=== PATIENT | male | born 1955 | race Caucasian/White ===

== ENCOUNTER 2017-03-18 19:52 | Observation (INO) ==
[2017-03-18] MEDS ORDERED: 0.9 % Sodium Chloride 1,000 ML IVC ONE (20:37)
[2017-03-18 20:50] LABS: Basophils % 0.5 %; Eosinophils # 0.3 K/mcL (0.0-0.6); Eosinophils % 3.7 %; Hematocrit 45.6 % (37.5-50.1); Hemoglobin 15.3 g/dL (12.9-16.9); Immature Granulocytes % 0.2 % (0-4); Lymphocytes # 2.3 K/mcL (0.6-4.6); Lymphocytes % 28.4 %; Mean Corpuscular HGB Conc 33.6 g/dL (31.6-35.5); Mean Corpuscular Hemoglobin 30.5 pg (28.0-33.3); Mean Corpuscular Volume 90.8 fL (83.0-100.0); Mean Platelet Volume 10.3 fL (9.4-12.4); Monocytes # 0.6 K/mcL (0.0-1.3); Monocytes % 7.6 %; Neutrophils # 4.8 K/mcL (1.6-8.9); Platelet Count 227 K/mcL (140-400); Red Blood Count 5.02 M/mcL (4.19-5.50); Red Cell Distribution Width 12.7 % (11.5-14.5); Segmented Neutrophils % 59.6 %
[2017-03-18 21:04] LABS: BUN/Creatinine Ratio 19 (6-26); Blood Urea Nitrogen 19 mg/dL (8-26); Calcium 9.4 mg/dL (8.6-10.8); Carbon Dioxide 24 mEq/L (19-29); Chloride 104 mEq/L (98-109); Glucose 96 mg/dL (70-99); Osmolality,Calculated 288 (280-300); Potassium 4.3 mEq/L (3.5-4.5); Sodium 138 mEq/L (136-145); eGFR For African Americans > 60 (> 60); eGFR For Non-African Americans > 60 (> 60)
[2017-03-18 21:05] LABS: Amphetamine Screen,Urine Negative ng/mL (Cutoff=1000); Barbiturate Screen,Urine Negative ng/mL (Cutoff=200); Benzodiazepines Screen,Urine Negative ng/mL (Cutoff=200); Cannabinoid Screen,Urine Negative ng/mL (Cutoff = 50); Cocaine Screen,Urine Negative ng/mL (Cutoff= 300); Opiate Screen,Urine Negative ng/mL (Cutoff=300); Phencyclidine Screen,Urine Negative ng/mL (Cutoff=25)
[2017-03-18 21:13] LABS: Bilirubin,Urine Negative (Negative); Blood,Urine Negative (Negative); Clarity,Urine Clear (Clear); Color,Urine Yellow (Yellow); Glucose,Urine (UA) Normal (Normal); Ketones,Urine Negative (Negative); Leukocyte Esterase,Urine Negative (Negative); Nitrite,Urine Negative (Negative); Protein,Urine Negative (Neg-Trace); Specific Gravity,Urine 1.008 (1.010-1.025); Urobilinogen,Urine Normal (Normal)
--- NOTE | 2017-03-18 21:30 | Emergency Department Note ---
Disposition Clinical Impression: Dizziness Syncope Qualifiers: Syncope type: unspecified Qualified Code(s): R55 - Syncope and collapse Disposition: Admitted As Inpatient Condition: Good Time of Disposition: 04:38 General Adult HPI - General Chief complaint: ED Dizziness Stated complaint: Dizziness, NV Time Seen by Provider: 03/18/17 20:09 Source: patient Nursing Notes Reviewed: Yes Vital Signs Reviewed: Yes - History of Present Illness HPI Narrative: Male patient complaining of dizziness. States that this been going on for about 14 days. Had several episodes of syncope. No associated chest pain or palpitations. No provoking or alleviating factors. Pain Scale: 0 - Related Data Home Medications Medication Instructions Recorded Confirmed Pantoprazole Sodium 40 mg PO BID 03/19/17 03/19/17 Allergies Allergy/AdvReac Type Severity Reaction Status Date / Time No Known Allergies Allergy Verified 03/18/17 19:56 All systems ED: reviewed and negative except as stated. Constitutional: Denies: fever, chills ENT ED: Denies: congestion Cardiovascular: Reports: syncope (several episodes over the past 2 weeks). Denies: chest pain, palpitations, dyspnea on exertion Respiratory: Denies: cough, dyspnea, wheezes Gastrointestinal: Denies: abdominal pain, nausea, vomiting, diarrhea, hematemesis, melena, hematochezia Genitourinary: Denies: urgency, dysuria, frequency Musculoskeletal: Denies: back pain, neck pain Integumentary: Denies: rash, abrasion, lesions Neurological: Reports: vertigo. Denies: headache, weakness, numbness Past Medical History - Past Medical History Attestation: Yes The following information was validated with the patient. Source: patient Medical history: Reports: arthritis, atrial fibrillation, GERD, other Surgical history: Reports: orthopedic, other, other Psychiatric history: Reports: no psych history - Social History Smoking Status: Never smoker Alcohol use: Reports: none Drug use: Reports: none Physical Exam - General General appearance: alert, in no apparent distress - Head Head exam: atraumatic, normocephalic, normal inspection - Eye Eye exam: Present: normal appearance, PERRL, EOMI. Absent: scleral icterus - ENT ENT exam: normal exam, normal oropharynx, mucous membranes moist - Neck Neck exam: Present: normal inspection, full ROM, trachea midline - Chest Chest inspection: Present: normal inspection, symmetric chest wall rise. Absent : tenderness, rash - Respiratory Respiratory exam: Present: normal lung sounds bilaterally. Absent: respiratory distress, accessory muscle use - Cardiovascular Cardiovascular exam: Present: regular rate, normal rhythm, normal heart sounds - Abdominal Exam Abdominal exam: Present: soft, Non-Tender. Absent: tenderness, distention, guarding, rebound, rigidity, organomegaly, Benitez's sign, Rovsing's sign, tenderness at McBurney's Point - Extremities Exam Extremities exam: Present: normal inspection, full ROM, normal capillary refill. Absent: tenderness, pedal edema - Back Exam Back exam: Present: normal inspection, full ROM. Absent: tenderness, CVA tenderness (R), CVA tenderness (L) - Neurological Exam Neurological exam: Present: alert, oriented X3 - Psychiatric Psychiatric exam: Present: normal affect, normal mood - Skin Skin exam: Present: warm, dry, intact, normal color. Absent: rash, cyanosis, diaphoresis, erythema Course Course Narrative: Male patient lying in bed complaining of a dizzy feeling. He states that he feels that the room is spinning. States his been going on for about 14 days now. States he has had several episodes of syncope. States that sometimes the syncope is associated with postural movements however others it is not. 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 States this is never happened to him before. Is unaware of any trauma. Denies any headaches or visual changes. Denies any shortness of breath or chest pain. Denies any feelings of palpitations prior to or after the syncope. He has no history of any type of trauma. Currently states that he does feel dizzy. Basic lab workup was normal as was patient's head CT. There was some free air shown on the CT in the subcutaneous tissues. Patient's EKG was normal. He was slightly bradycardic in the high 50s. Patient's exam was normal. He did get relief of his vertigo with meclizine while here in the emergency department. Due to patient's concerning symptoms of syncope and vertigo we will admit patient to the hospital for further evaluation. He is agreeable with this. Vital Signs Temperature 97.5 F L 03/18/17 19:53 Pulse Rate 58 03/18/17 19:53 Respiratory Rate 16 03/18/17 19:53 Blood Pressure 143/86 03/18/17 19:53 O2 Sat by Pulse Oximetry 97 03/18/17 19:53 Temperature 97.9 F 03/19/17 03:38 Pulse Rate 55 03/19/17 03:38 Respiratory Rate 16 03/19/17 03:38 Blood Pressure 100/53 03/19/17 03:38 O2 Sat by Pulse Oximetry 97 03/19/17 03:38 Oxygen Delivery Oxygen Delivery Room Air Medical Decision Making - Medical Records Medical records reviewed: Yes I reviewed the patient's medical records. - Lab Data Lab results reviewed: Yes I reviewed the patient's lab results. Result diagrams: 03/18/17 20:10 03/18/17 20:10 Lab Results 03/18/17 03/18/17 03/18/17 Range/Units 20:10 20:10 20:16 WBC 8.1 (4.3-11.1) K/mcL RBC 5.02 (4.19-5.50) M/mcL Hgb 15.3 (12.9-16.9) g/dL Hct 45.6 (37.5-50.1) % MCV 90.8 (83.0-100.0) fL MCH 30.5 (28.0-33.3) pg MCHC 33.6 (31.6-35.5) g/dL RDW 12.7 (11.5-14.5) % Plt Count 227 (140-400) K/mcL MPV 10.3 (9.4-12.4) fL Immature Gran % 0.2 (0-4) % Seg Neutrophils % 59.6 % Lymphocytes % 28.4 % Monocytes % 7.6 % Eosinophils % 3.7 % Basophils % 0.5 % Neutrophils # 4.8 (1.6-8.9) K/mcL Lymphocytes # 2.3 (0.6-4.6) K/mcL Monocytes # 0.6 (0.0-1.3) K/mcL Eosinophils # 0.3 (0.0-0.6) K/mcL Basophils # 0.0 (0.0-0.2) K/mcL Sodium 138 (136-145) mEq/L Potassium 4.3 (3.5-4.5) mEq/L Chloride 104 (98-109) mEq/L Carbon Dioxide 24 (19-29) mEq/L BUN 19 (8-26) mg/dL Creatinine 1.01 (0.72-1.25) mg/dL Est GFR ( Amer) > 60 (> 60) Est GFR (Non-Af Amer) > 60 (> 60) BUN/Creatinine Ratio 19 (6-26) Glucose 96 (70-99) mg/dL POC Glucose 94 H (58-89) Calculated Osmolality 288 (280-300) Calcium 9.4 (8.6-10.8) mg/dL Troponin I (0-0.03) ng/mL Urine Color (Yellow) Urine Clarity (Clear) Urine pH (5.0-8.0) pH Units Ur Specific [place] (1.010-1.025) Urine Protein (Neg-Trace) mg/dL Urine Glucose (UA) (Normal) mg/dL Urine Ketones (Negative) mg/dL Urine Blood (Negative) Urine Nitrite (Negative) Urine Bilirubin (Negative) Urine Urobilinogen (Normal) mg/dL Ur Leukocyte Esterase (Negative) Ur Culture Indicated? (NO) Urine Opiates Screen (Bgjkxw=748) ng/mL Ur Barbiturates Screen (Cvinfu=037) ng/mL Ur Phencyclidine Scrn (Cutoff=25) ng/mL Ur Amphetamines Screen (Otuvpx=4918) ng/mL U Benzodiazepines Scrn (Fytwot=334) ng/mL Urine Cocaine Screen (Cutoff= 300) ng/mL U Marijuana (THC) Screen (Cutoff = 50) ng/mL 03/18/17 03/18/17 03/18/17 Range/Units 20:42 20:42 21:30 WBC (4.3-11.1) K/mcL RBC (4.19-5.50) M/mcL Hgb (12.9-16.9) g/dL Hct (37.5-50.1) % MCV (83.0-100.0) fL MCH (28.0-33.3) pg MCHC (31.6-35.5) g/dL RDW (11.5-14.5) % Plt Count (140-400) K/mcL MPV (9.4-12.4) fL Immature Gran % (0-4) % Seg Neutrophils % % Lymphocytes % % Monocytes % % Eosinophils % % Basophils % % Neutrophils # (1.6-8.9) K/mcL Lymphocytes # (0.6-4.6) K/mcL Monocytes # (0.0-1.3) K/mcL Eosinophils # (0.0-0.6) K/mcL Basophils # (0.0-0.2) K/mcL Sodium (136-145) mEq/L Potassium (3.5-4.5) mEq/L Chloride (98-109) mEq/L Carbon Dioxide (19-29) mEq/L BUN (8-26) mg/dL Creatinine (0.72-1.25) mg/dL Est GFR ( Amer) (> 60) Est GFR (Non-Af Amer) (> 60) BUN/Creatinine Ratio (6-26) Glucose (70-99) mg/dL POC Glucose (58-89) Calculated Osmolality (280-300) Calcium (8.6-10.8) mg/dL Troponin I 0.01 (0-0.03) ng/mL Urine Color Yellow (Yellow) Urine Clarity Clear (Clear) Urine pH 7.0 (5.0-8.0) pH Units Ur Specific [place] 1.008 L (1.010-1.025) Urine Protein Negative (Neg-Trace) mg/dL Urine Glucose (UA) Normal (Normal) mg/dL Urine Ketones Negative (Negative) mg/dL Urine Blood Negative (Negative) Urine Nitrite Negative (Negative) Urine Bilirubin Negative (Negative) Urine Urobilinogen Normal (Normal) mg/dL Ur Leukocyte Esterase Negative (Negative) Ur Culture Indicated? NO (NO) Urine Opiates Screen Negative (Raheko=509) ng/mL Ur Barbiturates Screen Negative (Xroscs=794) ng/mL Ur Phencyclidine Scrn Negative (Cutoff=25) ng/mL Ur Amphetamines Screen Negative (Koqumw=8353) ng/mL U Benzodiazepines Scrn Negative (Ztyjpn=686) ng/mL Urine Cocaine Screen Negative (Cutoff= 300) ng/mL U Marijuana (THC) Screen Negative (Cutoff = 50) ng/mL - Radiology Data Radiology results reviewed: Yes I reviewed the patient's radiology results. Chest X-Ray 03/18/17 20:37 IMPRESSION: Stable appearance to the chest. No acute pulmonary process. D/ / 03/18/2017 22:03:29 Lashae Aaron MD / aimee Interpreting Provider: Lashae Aaron MD Head CT 03/18/17 20:37 IMPRESSION: No acute intracranial abnormality. Gas within the soft tissues as above, likely due to intravenous injection. Correlation for infectious process is recommended. D/ / Krystle Emmanuel Cha, MD / Krystle Emmanuel Cha, MD Interpreting Provider: Krystle Emmanuel Cha, MD - EKG Data EKG #1 EKG attestation: Yes I reviewed and interpreted this EKG. EKG results narrative: Normal sinus rhythm. No signs of acute ischemia. Attestation Statement - Attestation Attestation: I, Mannie Kirby MD, personally evaluated this patient and discussed their management with the resident physician. I reviewed the resident's note and agree with the documented findings, medical decision making, and plan of care. 61-year-old male presents to the emergency department complaining of dizziness which started about 10 days prior to arrival. It seems to come and go but is getting worse. It is worse with certain movements. No headache. Earache. No fever. Patient also complains that since the dizziness started he has had several episodes of syncope with complete loss of consciousness. No symptoms associated with the syncope such as chest pain or palpitations or shortness of breath. On examination patient is a well-developed well-nourished male in no acute distress. He is alert and oriented 3. There is no cyanosis or diaphoresis. Neck is supple and nontender with no lymphadenopathy and full range of motion. Breath sounds are clear and equal bilaterally. Heart regular rate and rhythm. Abdomen is soft and nontender with normal bowel sounds. No gross focal neurological deficits. Labs reviewed and unremarkable. EKG shows a sinus bradycardia with a heart rate of 55, no acute changes. Chest x-ray negative. Head CT shows no acute intracranial abnormality. There was some subcutaneous air at the left base of the skull and scalp of uncertain origin. The hospitalist, Dr. Waters, was consulted and accepted admission of the patient.
[2017-03-18] MEDS ORDERED: Naloxone 0.4 MG/ML INJ IVP PRN (23:28)
[2017-03-18] MEDS ORDERED: 0.9 % Sodium Chloride 1,000 ML IVC SCH (23:30)
--- NOTE | 2017-03-18 23:36 | Internal Med History&Physical ---
Date of Encounter: 03/18/17 Time of Encounter: 23:34 Assessment and Plan (1) Inner ear dysfunction Current visit: Yes Status: Acute Suspect related to inner ear pathology give his hx - appears waxing and waning, on/off and not persistent per his report Low suspicion for basilar/brainstem CVA causing vertigo. Will have ENT evaluate in the morning to weigh in on a non emergent basis prn meclizine suspect labyrinthitis/BPPV IVF PT/OT eval unsure of etiology of gas in subq tissue on head CT Qualifiers: Laterality: bilateral Qualified Code(s): H83.93 - Unspecified disease of inner ear, bilateral (2) Syncope and collapse Current visit: Yes Status: Acute related to vertigo above Doubt cardiac. Has sinus ihsan but doubt symptomatic from this Tele for now Internal Medicine - H&P: HPI Chief complaint: Vertigo, syncope History of present illness: Mr. Engel is a 61 year old male who presents with 2 weeks hx of intermittent on and off vertigo with syncope. 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 The symptoms are intermittent and come on and off like a switch. He is therefore able to continue work up today of presentation. He describes vertiginous symptoms such as a perception of room spinning. Episodes lasting for seconds at a time and no longer than minutes. On 3-4 occasions in the last 2 weeks, active vertigo symptoms were related to transient syncope episodes while at work operating on his patient. After these episodes, symptoms would get better and he was able to return to work. 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 He had a hx of decompression sickness in may 2015 and reports that this present presentation feels different from that presentation. EKG reviewed by self with rate 55, sinus bradycardia FINDINGS: BRAIN/VENTRICLES: There is no acute intracranial hemorrhage, mass effect or midline shift. No abnormal extra-axial fluid collection. The yang-white differentiation is maintained without evidence of an acute infarct. There is no evidence of hydrocephalus. ORBITS: The visualized portion of the orbits demonstrate no acute abnormality. SINUSES: The visualized paranasal sinuses and mastoid air cells demonstrate no acute abnormality. SOFT TISSUES/SKULL: Gas in the soft tissues of the musculature of the base of the skull and left scalp is likely related to intravenous injection. CT/CT head/brain wo con IMPRESSION: No acute intracranial abnormality. Gas within the soft tissues as above, likely due to intravenous injection. Correlation for infectious process is recommended. XR/XR chest 1V portable IMPRESSION: Stable appearance to the chest. No acute pulmonary process. Past Med Surg Social Fam HX - Past Medical History Medical history: arthritis, GERD, other Psychiatric history: no psych history - Past Surgical History Surgical History: orthopedic, other, other - Social History Smoking Status: Never smoker Alcohol use: none Drug use: none Internal Medicine - H&P: Meds 3 Allergy/AdvReac Type Severity Reaction Status Date / Time No Known Allergies Allergy Verified 03/18/17 19:56 All Systems PM: A 10-system review of systems was performed and is negative for pertinent findings except as documented above in the HPI. Review of systems: ROS 14 point review of systems reviewed as best as possible given presentation. Pertinent positive or negative as per HPI or otherwise reviewed as negative - Constitutional Vitals: Temp Pulse Resp BP Pulse Ox 97.5 F L 67 18 132/62 97 03/18/17 19:53 03/18/17 23:14 03/18/17 23:14 03/18/17 23:14 03/18/17 23:14 Exam: General - AAO x 3 Psych - Appropriate affect/speech. No agitation Eyes - NICHOL. Eye lids intact. No scleral icterus Neuro - No gross peripheral or central neuro deficits. Heart - Sinus. RRR. S1 and S2 present. No added HS/murmurs appreciated. No elevated JVD appreciated. Lung - Adequate air entry b/l, No crackles/wheezes appreciated GI - Soft, non-tender. No hepatosplenomegaly/ascites. BS+ - No CVA/suprapubic tenderness or palpable bladder distension Skin - Intact. No rash/petechiae/ecchymosis. Warm extremities Internal Med - H&P Results - Labs CBC & Chem 7: 03/18/17 20:10 03/18/17 20:10 Labs: Short CBC 03/18/17 Range/Units 20:10 WBC 8.1 (4.3-11.1) K/mcL Hgb 15.3 (12.9-16.9) g/dL Hct 45.6 (37.5-50.1) % Plt Count 227 (140-400) K/mcL Neutrophils # 4.8 (1.6-8.9) K/mcL BMP 03/18/17 20:10 Sodium 138 Potassium 4.3 Chloride 104 Carbon Dioxide 24 BUN 19 Creatinine 1.01 Glucose 96 Calcium 9.4 Cardiac Enzymes 03/18/17 Range/Units 21:30 Troponin I 0.01 (0-0.03) ng/mL Urine 03/18/17 Range/Units 20:42 Urine Color Yellow (Yellow) Urine Clarity Clear (Clear) Urine pH 7.0 (5.0-8.0) pH Units Ur Specific [place] 1.008 L (1.010-1.025) Urine Protein Negative (Neg-Trace) mg/dL Urine Glucose (UA) Normal (Normal) mg/dL - Impressions ITS Impressions Chest X-Ray 03/18/17 20:37 IMPRESSION: Stable appearance to the chest. No acute pulmonary process. D/ / 03/18/2017 22:03:29 Lashae Aaron MD / aimee Interpreting Provider: Lashae aAron MD Head CT 03/18/17 20:37 IMPRESSION: No acute intracranial abnormality. Gas within the soft tissues as above, likely due to intravenous injection. Correlation for infectious process is recommended. D/ / Krystle Emmanuel Cha, MD / Krystle Emmanuel Cha, MD Interpreting Provider: Krystle Emmanuel Cha, MD
--- NOTE | 2017-03-19 09:14 | ENT - Consult Note ---
Date of Encounter: 03/19/17 Time of Encounter: 08:53 Assessment and Plan (1) Benign paroxysmal positional vertigo of left ear Current Visit: Yes Status: Acute Based off history as well as clinical exam findings with positive Dicks Hallpike testing to the left patient with diagnosis of benign paroxysmal positional vertigo. Discussed diagnosis as well as treatment plan with patient at the bedside. Patient to be on meclizine as needed only when severe to go episodes occur. Sadaf 2 was performed at the bedside. Discussed the 95% of patients will have resolution of vertigo with the Sadaf performed 2. Will also give patient exercises to do at home and will have patient follow-up with vestibular therapy with [facility]. We will have my office set up this referral. Patient to follow-up in my office in 2-3 weeks to see if repeat Sadaf needs to be performed. Recommend sending patient home with a prescription of meclizine. History of Present Illness Consult date: 03/19/17 Reason for ENT Consult: vertigo History of present illness: Patient is a 61-year-old gentleman that presented to the hospital with 2 weeks of spinning episodes and syncopal episodes. Patient describes the spinning episodes as lasting seconds and worsened with turning to the left. Patient states that these up and recurring getting worse. Patient with associated nausea. Patient states he has been feeling wobbly as well in between episodes of spinning. Patient with difficulty ambulating secondary to this. 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 Patient has never underwent any similar symptoms. Patient denies any recent head trauma. Patient recently with upper respiratory infection that is passed. Past Med Surg Social Fam HX - Past Medical History Medical history: arthritis, atrial fibrillation, GERD, other Psychiatric history: no psych history - Past Surgical History Surgical History: orthopedic, other, other - Social History Smoking Status: Never smoker Smokeless Tobacco Status: No Alcohol use: none Drug use: none - Family History Father Adopted: No Age: 73 Living Status: Age at : 73 Cause of : CVA Mother Age: 67 Living Status: Age at : 67 Cause of : NH Hx Family Cardiac Disorders: Yes (NH) Medications and Allergies Pantoprazole Sodium 40 mg PO BID 03/19/17 [History] 3 Allergy/AdvReac Type Severity Reaction Status Date / Time No Known Allergies Allergy Verified 03/18/17 19:56 ENT - ROS - Constitutional Constitutional ROS: as per HPI - EENT Nose, mouth and throat: disequilibrium, vertigo, no neck mass - Cardiovascular Cardiovascular ROS IM: lightheadedness, syncope, no chest pain, no chest pain at rest, no irregular heart rhythm - Respiratory no dyspnea, no wheezing - Gastrointestinal Gastrointestinal: nausea, no coffee ground emesis - Neurological Neurological ROS: lack of coordination, syncope, vertigo - Endocrine Endocrine: no palpitations ENT Exam Initial Vital Signs Temp Pulse Resp BP Pulse Ox 97.5 F L 58 16 143/86 97 03/18/17 19:53 03/18/17 19:53 03/18/17 19:53 03/18/17 19:53 03/18/17 19:53 - General physical appearance well developed, well nourished - Eyes other (Rotary nystagmus with [place]-Hallpike testing), PERRL, normal ocular movement - ENT normal pinna, normal nares, normal mucosa, no congestion, Other (Teeth are in good repair, tonsils surgically absent, tongue mobile and midline) - Neck trachea midline - Respiratory normal expansion, normal respiratory effort - Neurologic CN 2-12 grossly intact, other ([place]ito-Hallpike was positive to the left with rotary nystagmus) Exam Initial Vital Signs Temp Pulse Resp BP Pulse Ox 97.5 F L 58 16 143/86 97 03/18/17 19:53 03/18/17 19:53 03/18/17 19:53 03/18/17 19:53 03/18/17 19:53 Results - Labs 03/18/17 20:10 03/18/17 20:10 Abnormal lab results POC Glucose 94 (58-89) H 03/18/17 20:16 Ur Specific [place] 1.008 (1.010-1.025) L 03/18/17 20:42 All other labs normal. Consult Discharge Plan - Plan Referrals: Adilene Burnette CNP [Primary Care Provider] -
--- NOTE | 2017-03-19 09:31 | ENT - Procedure Note ---
Date of procedure: 03/19/17 Pre-op diagnosis: Vertigo Post-op diagnosis: other (Benign paroxysmal positional vertigo) Procedure: Procedure: Canal otolith repositioning CPT 64485 Procedure in detail:While sitting on the bed, the patient's head was rotated to face the direction that causes the veritgo., The patient was then reclined backward, so the head ended up over the edge of the bed,, still facing over the same shoulder. This position was held for aleast five minutes., Next, the patient's head was rotated to face over the opposite shoulder and held for at least five minutes., The, the patient was rolled on the side in the direction to which he/she is facing and held in this position for five minutes., The patient was assisted into a sitting position, keeping their head facing over the shoulder. The same exercise was repeated to the left. Patient exhibited rotary nystagmus to the left when the procedure was performed. The patient tolerated well. Anesthesia: none Surgeon: Bri Canseco Estimated blood loss (cc): 0 Condition: stable
--- NOTE | 2017-03-19 15:01 | Discharge Summary ---
Date of Encounter: 03/19/17 Time of Encounter: 15:01 - Discharge Diagnosis (1) Benign paroxysmal positional vertigo of left ear Priority: Primary Status: Acute Comments: Kyle Engel is a 61-year-old male with no significant past medical history who presented to [facility] on 03/18/2017 with complaints of vertigo episodes. He was evaluated by ENT who felt symptoms were consistent with BPPV. He underwent the Sadaf maneuver 2 at bedside with improvement in symptoms. He was discharged home in stable condition with ENT follow-up reports intermittent episodes of of room spinning with 3-4 occasions of syncope for 2 weeks prior to admission. He reported symptoms related to head movements particularly on his left. He was evaluated by ENT who noted positive Esparto Hallpike test. S/p Sadaf maneuver [address] Mayberry with improvement in symptoms. Continue PRN meclizine for severe vertigo at discharge. Will need to follow-up with ENT in 2-3 weeks (ENT office will set up referral call patient). - Discharge Medications Prescriptions: Meclizine [Antivert] 25 mg PO Q4H PRN #60 tablet PRN Reason: Vertigo Home Medications: Meclizine [Antivert] 25 mg PO Q4H PRN #60 tablet 03/19/17 [Rx] Pantoprazole Sodium 40 mg PO BID 03/19/17 [History] Allergies/Adverse Reactions: 3 Allergy/AdvReac Type Severity Reaction Status Date / Time No Known Allergies Allergy Verified 03/18/17 19:56 Date of admission: 03/18/17 23:30 Primary care physician: Adilene Burnette, Consults: 03/18/17 23:32 Consult to Physical Therapy [CONS] Routine Comment: Evaluate, develop and implement POC Reason for Consult: ambulate assess BPPV 03/18/17 23:33 Consult to Occupational Therapy [CONS] Routine Comment: Evaluate, develop and implement POC Reason for Consult: ambulate and assess BPPV Discharging clinician: Jackie Malcolm Anticipated date of discharge: 03/19/17 - Patient Status Disposition: Home, Self-Care Functional capacity at discharge: independent ambulation Overall status at discharge: patient is progressing back to baseline - Discharge Instructions Follow Up With: Adilene Burnette, DELIVERY TABLE FEEDER [Primary Care Provider] - - Diet and Activity Activity: increase activity as tolerated Diet: advance to your usual diet Interval History: Seen and examined at bedside; patient is new to me, information obtained from chart review and patient report. Patient laying in bed, says he feels better. Still has episodes of vertigo but overall improved. He wants to go home. Denies chest pain, no shortness of breath. Hospital course: See assessment and plan for hospital course - Time Spent with Patient Total time spent providing and/or coordinating discharge services: Less than 30 minutes - Constitutional Vitals: Temp Pulse Resp BP Pulse Ox 98.0 F 56 18 109/64 98 03/19/17 11:28 03/19/17 11:28 03/19/17 11:28 03/19/17 11:28 03/19/17 11:28 General appearance: Present: A&O X 3, no acute distress - Head Head exam: Present: atraumatic, normocephalic - Eye Eye exam: Present: PERRL, conjuntiva pink, sclera anicteric Pupils: Present: PERRL - Neck Neck exam general surgery: Present: supple, trachea midline. Absent: lymphadenopathy - Respiratory Respiratory exam: Present: CTAB. Absent: accessory muscle use, rales, rhonchi, wheezes - Cardiovascular Cardiovascular exam: Present: RRR, +S1, +S2. Absent: diastolic murmur, gallop, rubs, systolic murmur - GI/Abdominal GI/Abdominal exam: Present: normal bowel sounds, soft, no peritoneal signs. Absent: distended, tenderness - Extremities Exam Extremities exam: Present: warm, radial pulses palpable and symmetrical. Absent : calf tenderness, cyanotic, pedal edema - Neurological Exam Neurological exam: Present: CN II-XII intact, oriented X3, no focal deficits. Absent: pronater drift, facial droop, speech deficit - Skin Skin exam: Present: dry, intact
[2017-03-19 15:18] VITALS: BP 115/65
--- NOTE | 2017-03-19 18:56 | Electrocardiograph Report ---
[place] [id number] Test Date: 2017-03-18 Pat Name: Kyle Engel Department: 103 Room: [facility] Gender: M [employer]: : 1955 Requested By: Claire Mathias Order Number: [id number] Reading MD: Faustino Wu MD Measurements Intervals [place] Rate: 55 P: 26 OR: 190 QRS: -17 QRSD: 92 T: 9 QT: 440 QTc: 430 Interpretive Statements SINUS BRADYCARDIA VOLTAGE CRITERIA FOR LVH Electronically Signed On 03-19-2017 18:54:30 EDT by Faustino Wu MD
== END 2017-03-19 15:43 | disposition home or self-care (01) ==
LOC: 3NENU 19:52 → EMEROO 19:52 → 3NENU 03-19 00:04
PROVIDERS: ADMIT Hospitalist; ATTEND Hospitalist